=== PATIENT | male | born 1980 | race Caucasian/White ===

== ENCOUNTER 2017-01-30 10:35 | Emergency (ER) | payer BC, OTHER ==
--- NOTE | ~2017-01-30 | CR63 ---
[facility] A Service of [facility] RADIOLOGY TEXT RESULTS PATIENT: BRITTANY SAAVEDRA LOCATION: [place] : 82 UNIT #: [id number] AGE: [address]: Juana Powers SEX: M ORDER DR: [id number] [facility] [address] [place], [place] [address] [id number] MR#: [id number] Acc #: [id number] NAME: BRITTANY SAAVEDRA. : 1980 SEX: M STUDY DATE/TIME: 01/30/2017 11:17 UNIT: [facility] ROOM: STUDY DESCRIPTION: CR Chest 2 View Attending Physician: Juana Powers Pa-C Ordering Physician: Juana Powers Pa-C Primary Care Physician: No Primary Care Physician MEDICAL IMAGING REPORT This report is preliminary unless electronic signature is present EXAM Chest PA and lateral 01/30/2017. HISTORY Shortness of breath and productive cough hurts to breathe. Symptoms for 1 week. Smoking history. FINDINGS PA and lateral examination of the chest upright shows a good expansion of the parenchyma with a normal distribution of the pulmonary vascularity. There is no indication of congestion, effusion, infiltrate, tumor, or nodular density. The pleural reflections and diaphragmatic contours are normal. The cardiac silhouette and mediastinal anatomy is within normal limits. IMPRESSION Normal chest. Dictated by... Ramesh Still M.D. THIS IS AN ELECTRONICALLY VERIFIED REPORT Ramesh Still M.D. at 01/31/2017 9:23 AM KRT/gz TD: 01/30/2017 13:44 JOB #: [id number] MEDICAL IMAGING REPORT Page 1 of 1 COPY
[~2017-01-30 10:35] MED LIST: BACITRACIN3.5 GM OP; PERCOCET10 PO; PHENERGAN25 MG PO; SILVADENE TOP
== END 2017-01-30 12:14 | disposition home or self-care (01) ==
LOC: CFTX 10:35 → CED 10:35 → CFTX 11:34
DX: J20.9 Acute bronchitis, unspecified (principal); F17.210 Nicotine dependence, cigarettes, uncomplicated; Z98.890 Other specified postprocedural states
CPT/HCPCS: 71020; 99283